=== PATIENT | female | born 1970 | race Asian ===

== ENCOUNTER 2019-02-08 16:26 | Emergency (ER) | payer BC ==
[~2019-02-08] VITALS: Ht 162.6 cm; Wt 81.8 kg
[2019-02-08 16:32] VITALS: Ht 162.6 cm; Wt 81.8 kg
--- NOTE | 2019-02-08 16:42 | ERD ---
ER Documentation Chief Complaint Chief Complaint red, watering eyes x1wk, denies pain HPI The patient is a 49-year-old female, presenting to the ER because of bilateral eye redness, pruritus, watery and yellowish discharge for 1 week, denies blurred vision/pain. She denies headache, neck pain, chest pain, dyspnea, abdominal pain, vomiting. Past medical history: Hypertension Past surgical history: None ROS All systems reviewed and are negative except as per history of present illness. Medications Home Meds Active Scripts Polymyxin B Sulfate-TMP* (Polymyxin B-TMP Eye Drops*) 10 Ml Drops, 1 DROP BOTH EYES QID for 7 Days, EA Prov:RAY ALICIA MD 02/08/19 Olopatadine* (Patanol* Ophth) 0.1% - 5 Ml Drops, 1 DROP BOTH EYES BID for 7 Days, #1 EA Prov:RAY ALICIA MD 02/08/19 Allergies Allergies: Coded Allergies: No Known Allergy (Unverified , 02/08/19) Physical Exam Vitals Vital Signs Date Temp Pulse Resp B/P (MAP) Pulse Ox O2 O2 Flow FiO2 Time Delivery Rate 02/08/19 97.3 96 18 163/87 97 16:32 (112) Physical Exam Const: No acute distress. Head: Atraumatic. Eyes: Bilateral erythematous conjunctivae with watery discharge, no eye entrapment ENT: Normal External Ears, Nose and Mouth. Neck: Full range of motion. No meningismus. Resp: Clear to auscultation bilaterally. Cardio: Regular rate and rhythm. Abd: Soft, non distended, normal bowel sounds, non tender. Skin: No petechiae or rashes. Back: No midline or flank tenderness. Ext: No cyanosis, or edema. Neur: Awake and alert. No focal deficit Psych: Normal Mood and Affect. Procedures/MDM MEDICAL MAKING DECISION: The patient is 49-year-old female, presenting with acute bilateral bacterial and allergic conjunctivitis, is stable for outpatient follow-up The differential diagnoses considered include but are not limited to foreign body, corneal abrasion Departure Diagnosis: Primary Impression: Acute bacterial conjunctivitis of both eyes Additional Impression: Allergic conjunctivitis of both eyes Condition: Good Comments She was discharged with Patanol and Polytrim eyedrop I discussed the findings with the patient. I advised the patient to follow-up with the primary physician in about 2-3 days, sooner if needed and return if any concern. Disclaimer: Inadvertent spelling and grammatical errors are likely due to EHR/dictation software use and do not reflect on the overall quality of patient care. Also, please note that the electronic time recorded on this note does not necessarily reflect the actual time of the patient encounter. RAY ALICIA MD February 08, 2019 16:42
[2019-02-08] MEDS ORDERED: POLY10DR19 BOTH EYES (16:49)
[2019-02-08] MEDS ORDERED: OLOP5DRO12 BOTH EYES (16:49)
[2019-02-08 17:00] VITALS: BP 139/90; PULSE 75; RESP 18
== END 2019-02-08 17:00 | disposition home or self-care (01) ==
LOC: E/R 16:26
DX: H10.023 Other mucopurulent conjunctivitis, bilateral (principal); I10 Essential (primary) hypertension; H10.13 Acute atopic conjunctivitis, bilateral
CPT/HCPCS: 99283

== ENCOUNTER → 2019-04-05 | Outpatient (CLI) | payer BC ==
[~2019-04-05] MED LIST: OLOP5DRO12 BOTH EYES; POLY10DR19 BOTH EYES
== END | disposition home or self-care (01) ==
LOC: LAB 17:05
PROVIDERS: ATTEND Obstetrics & Gynecology
DX: Z01.818 Encounter for other preprocedural examination (principal); D25.9 Leiomyoma of uterus, unspecified
CPT/HCPCS: 80053; 81001; 85025; 85610; 85730; 87086

== ENCOUNTER 2019-04-12 05:49 | Inpatient (IN) | payer BC ==
--- NOTE | 2019-04-10 20:22 | HP ---
Date/Time of Note Date/Time of Note DATE: 04/10/19 TIME: 20:15 Assessment/Plan VTE Prophylaxis SCD applied (from Nsg): Yes Pharmacological prophylaxis: NA/contraindicated Pharm contraindication: low risk/ambulating Lines/Catheters IV Catheter Type (from Nrsg): Peripheral IV Central line still needed: No Urinary Cath still in place: Yes (for 1st 24 hours.) Reason Cath still needed: other (indicate) (for 24 hours post-op) Assessment/Plan Assessment/Plan A: Large fibroid uterus. Menorrhagia. P: Total abdominal hysterectomy, possible uni- or bilateral salpingoophorectomy. HPI/ROS Admit Date/Time Admit Date/Time April 12, 2019 Hx of Present Illness Pt is a 49 y.o. A3 with a large growing fibroid uterus with heavy periods and is coming in for a hysterectomy. ROS Constitutional: no complaints Respiratory: no complaints Cardiovascular: no complaints Gastrointestinal: no complaints Genitourinary: no complaints Musculoskeletal: no complaints Neurologic: no complaints Psychological: no complaints, nl mood/affect PMH/Family/Social Past Medical History None except environmental allergies. Medical History: no pertinent history Coded Allergies: No Known Allergy (Unverified , 02/08/19) Past Surgical History D and C 2012 for menorrhagia. Family History Significant Family History: cancer (sister with breast CA), diabetes (both parents and maternal GM), hypertension (both parents.) Social History Alcohol Use: none Smoking Status: Former smoker Drug Use: none Exam/Review of Systems Vital Signs Vitals BP 136/80. Exam Constitutional: alert, oriented, well developed Psych: no complaints, nl mood/affect Neck: supple, non-tender Respiratory: clear to auscultation, normal air movement Cardiovascular: regular rate and rhythm, nl pulses Gastrointestinal: soft, nl liver, spleen, non-tender Genitourinary - Female: nl external genitalia, uterus (Large, palpable.) Neurological: ICE CREAM DIPPER II-XII intact, nl mental status, nl speech, nl strength CLINTON BENJAMIN MD Apr 10, 2019 20:22
[2019-04-12] VITALS (26 sets, daily range): BP systolic 117–146; BP diastolic 58–98; PULSE 75–100; RESP 15–24; Ht 162.6 cm; Wt 82.9 kg
[~2019-04-12] VITALS: Ht 162.6 cm; Wt 82.9 kg
[~2019-04-12 05:49] MED LIST changes: +CEFAZOLIN 2 GM/50 ML (PMX) 50 ML IVPB ONE; +FER325 PO; +HYDR-3601 PO; +IBUP800T48 PO; +LACTATED RINGER'S 1,000 ML IV SCH; +LORA-186 PO
--- NOTE | 2019-04-12 07:21 | PREAC ---
Date/Time of Note Date/Time of Note DATE: 04/12/19 TIME: 07:17 Anesthesia Eval and Record Evaluation Time Pre-Procedure Interview DATE: 04/12/19 TIME: 07:17 Age 49 Sex female NPO: 8 hrs Preoperative diagnosis uterine fibroid Planned procedure total abdominal hysterectomy Past Medical History Past Medical History: None GI: Obesity Surgery & Anesthesia Issues No known issue Meds Anticoagulation: No Beta [place] within 24 hr: No Reason Beta Parish not given: Pt. not on B-Parish Reported Medications Loratadine* (Claritin*) 10 Mg Tablet, 10 MG PO DAILY, TAB 04/12/19 Ferrous Sulfate* (Ferrous Sulfate*) 325 Mg Tabec, 325 MG PO DAILY, TAB 04/12/19 Discontinued Scripts Polymyxin B Sulfate-TMP* (Polymyxin B-TMP Eye Drops*) 10 Ml Drops, 1 DROP BOTH EYES QID for 7 Days, EA Prov:RAY ALICIA MD 02/08/19 Olopatadine* (Patanol* Ophth) 0.1% - 5 Ml Drops, 1 DROP BOTH EYES BID for 7 Days, #1 EA Prov:RAY ALICIA MD 02/08/19 Current Medications Lactated Ringer's 1,000 ml @ 125 mls/hr Q8H IV ; Start 04/10/19 at 20:08 Meds reviewed: Yes Allergies Coded Allergies: No Known Allergy (Unverified , 04/12/19) Allergies Reviewed: Yes Labs/Studies Labs Reviewed: Reviewed by anesthesiologist test: Negative Studies: ECG (n/a), CXR (n/a) Pre-procedure Exam Airway: Adequate mouth opening Mallampati: Mallampati I Teeth: Normal Lung: Normal Heart: Normal ASA Physical Status ASA physical status: 2 Emergency: None Planned Anesthetic General/MAC: ETT, LMA Neuraxial: Spinal Planned Pain Management Sub-arachniod narcotics, Parenteral pain med Pre-operative Attestations Prior to commencing anesthesia and surgery, the patient was re-evaluated, there was verification of: *The patient's identity *The results of appropriate recent lab work and preoperative vital signs *The above evaluation not changing prior to induction *Anesthetic plan, risk benefits, alternative and complications discussed with patient/family; questions answered; patient/family understands, accepts and wishes to proceed. KALPANA COOK MD Apr 12, 2019 07:21
[2019-04-12] MEDS ORDERED: EPHEDrine 25 MG/5 ML SYG ONE (07:24)
[2019-04-12] MEDS ORDERED: PROPOFOL 20 ML ONE (07:24)
[2019-04-12] MEDS ORDERED: DESFLURANE 15 MIN ONE (07:24)
[2019-04-12] MEDS ORDERED: ONDANSETRON 4 MG INJ ONE (07:25)
[2019-04-12] MEDS ORDERED: morphine SULFATE/PF (10 MG/10 ML) INJ ONE (07:25)
[2019-04-12] MEDS ORDERED: METOCLOPRAMIDE 10 MG INJ ONE (07:25)
[2019-04-12] MEDS ORDERED: CEFAZOLIN 1 GM INJ ONE (07:25)
[2019-04-12] MEDS ORDERED: FENTAnyl 50 MCG/ML VIAL ONE (07:25)
[2019-04-12] MEDS ORDERED: MIDAZOLAM 1 MG/ML 2 ML INJ ONE (07:25)
[2019-04-12] MEDS ORDERED: KETOROLAC 30 MG INJ ONE (07:25)
[2019-04-12] MEDS ORDERED: HYDROmorphONE 1 MG/5 ML IV SYRINGE IV PRN ×3 (07:30)
[2019-04-12] MEDS ORDERED: FENTAnyl 50 MCG/ML VIAL IV PRN ×3 (07:30)
[2019-04-12] MEDS ORDERED: MEPERIDINE 25 MG INJ IV PRN (07:30)
[2019-04-12] MEDS ORDERED: ONDANSETRON 4 MG INJ IV PRN ×2 (07:30→11:30)
[2019-04-12] MEDS ORDERED: KETOROLAC 30 MG INJ IV PRN (07:30)
[2019-04-12] MEDS ORDERED: DIPHENHYDRAMINE 50 MG INJ IV PRN (07:30)
--- NOTE | 2019-04-12 07:36 | HPN ---
Date/Time of Note Date/Time of Note DATE: 04/12/19 TIME: 07:36 Interval H&P Admission Note Pt. seen H&P reviewed: No system changes CLINTON BENJAMIN MD Apr 12, 2019 07:36
[2019-04-12] MEDS ORDERED: HYDROCODONE/APAP (5/325) TAB PO PRN (11:30)
[2019-04-12] MEDS ORDERED: IBUPROFEN 600 MG TAB PO PRN (11:30)
--- NOTE | 2019-04-12 11:33 | SIPON ---
Date/Time of Note Date/Time of Note DATE: 04/12/19 TIME: 11:31 Operative Report Preoperative Diagnosis Large fibroid uterus Postoperative Diagnosis Same Operation/Procedure Performed Total abdominal hysterectomy, bilateral salpingectomy. Surgeon see signature line perioperative assistant Nikole Bowens MD Anesthesia: general, spinal Estimated blood loss: 150 - 200 ml's Transfusion Required none Specimen Uterus and both tubes. Grafts/Implants none Complications none CLINTON BENJAMIN MD Apr 12, 2019 11:32
--- NOTE | 2019-04-12 11:34 | OPR ---
Date/Time of Note Date/Time of Note DATE: 04/12/19 TIME: 11:33 Operative Report Procedure Date: Apr 12, 2019 Preoperative Diagnosis Large fibroid uterus. Postoperative Diagnosis Same Operation/Procedure Performed Total abdominal hysterectomy with bilateral salpingectomy. Surgeon see signature line Operator And Truck Driver Nikole Bowens MD Anesthesia Type: general, spinal Anesthesiologist: KALPANA COOK MD Estimated Blood Loss: 150 - 200 ml's Transfusion none Specimen Uterus with both tubes. Grafts/Implants none Complications none Pt Condition Post Procedure: stable Disposition: PACU Procedure Description The patient was brought to the operating room and placed on the operating room table and was given a spinal block with Duramorph and then placed under general anesthesia. A vaginal prep was done. A Ring catheter was placed and then she was prepped and draped in the usual sterile fashion. A Pfannenstiel incision was made using a knife through the skin and subcutaneous tissue down to the level of fascia. Fascia was incised and extended bilaterally using Bovie cautery and scissors. The superior edge of the fascia was grasped with Josue clamps and the rectus muscles were from the overlying fascia using blunt dissection and Bovie cautery. The anterior peritoneum was bluntly entered using the surgeon's fingers and then stretched open with hands. The retractor was placed and packing with moist laps to keep the bowel out of the way. The uterus was large and bulky up to just below the umbilicus. The fundus was grasped with a double tooth tenaculum and elevated up through the incision with some difficulty. The uterus was broad and deep so despite the large incision there was minimal clearance at the sides. Placed 2 Pean clamps around the pedicles on each side of the uterus and used another Pean to grasp the round ligament. Cut the round ligament with cautery and suture ligated the stump on each side, developed the bladder flap and then pushed the bladder away using a sponge stick. A window was then made in the broad ligament on each side using the surgeon's fingers and then a Pean clamp was placed from the pedicles down to the opening and the tissue was then cut. This was proximal to the ovaries. The ovaries are being left in place. The pedicle on each side was then suture ligated and also a free tie was placed around the stump after each as well. Skeletonized the uterine vessels on each side, clamped the vessels with a straight Matthew clamp, then cut and suture ligated the uterine vessels. The ut erus was then cut off to get the bulky mass out of the way. The surgery proceeded with clamping, cutting and suture ligating the uterine vasculature on each side down to the level of the cervix and pushing the bladder away as needed, I was then able to enter the vagina anteriorly using a knife. The edges were grasped with a Josue clamp and then proceeded to cut out the cervix with Javan scissors. The cuff was closed with 0 chromic suture with excellent hemostasis noted with 2 stitches of 0 Vicryl. The tubes on each side were also removed, elevating the tubes with a Kellee clamp and placing a Pean clamp along the base cutting off the tube and suture ligating the stump on each side. The pelvis was then irrigated well. The cuff was dry. The broad ligament was dry. The ovaries both appeared very normal. Surgicel was placed at the cuff. The ovaries naturally stayed well out of the pelvis. Packing was then removed. The retractor was then removed. The count was performed and was correct for instruments and laps. The anterior peritoneum was then closed using 2-0 chromic in a running stitch. The rectus muscles were brought back together at midline with interrupted [id number] sutures of the same material. The underbelly of the fascia was examined and noted to be dry. The fascia was then closed using 0 Vicryl suture in a running stitch from each lateral edge to midline with overlap at the midline. Subcutaneous tissue was irrigated well, cautery applied where needed for hemostasis. The subcutaneous layer was closed using 2-0 chromic suture in a running stitch. The skin was then closed with 3-0 Monocryl in a subcuticular stitch with excellent tissue approximation and hemostasis. Mastisol and Steri-Strips were placed and a pressure dressing was applied ov blanquita. The patient tolerated the procedure very well and was brought to the recovery room in excellent condition. CLINTON BENJAMIN MD Apr 12, 2019 11:34
[2019-04-12] MEDS: LACTATED RINGER'S 1,000 ML IV SCH (17:13)
[2019-04-13] MEDS: LACTATED RINGER'S 1,000 ML IV SCH ×3 (00:21→08:31)
[2019-04-13 02:40] VITALS: BP 126/75; PULSE 72; RESP 17
[2019-04-13 07:30] VITALS: BP 121/68; PULSE 76; RESP 18
--- NOTE | 2019-04-13 07:59 | PAC ---
Date/Time of Note Date/Time of Note DATE: 04/13/19 TIME: 07:59 Post-Anesthesia Notes Post-Anesthesia Note Last documented vital signs Vital Signs Date Temp Pulse Resp B/P (MAP) Pulse Ox O2 O2 Flow FiO2 Time Delivery Rate 04/13/19 98.2 76 18 121/68 98 07:30 (85) 04/12/19 Nasal 2.0 20:15 Cannula Activity: WNL Respiratory function: WNL Cardiovascular function: WNL Mental status: Baseline Pain reasonably controlled: Yes Hydration appropriate: Yes Nausea/Vomiting absent: No KALPANA COOK MD Apr 13, 2019 07:59
--- NOTE | 2019-04-13 08:01 | OPPN ---
Date/Time of Note Date/Time of Note DATE: 04/13/19 TIME: 07:59 Anesthesia Follow up Anesthesia Follow up Last documented vital signs Vital Signs Date Temp Pulse Resp B/P (MAP) Pulse Ox O2 O2 Flow FiO2 Time Delivery Rate 04/13/19 98.2 76 18 121/68 98 07:30 (85) 04/12/19 Nasal 2.0 20:15 Cannula Respiratory function: WNL Cardiovascular function: WNL Comments A 49 year s/p GA, andspinal with duramorph for post op pain. POD #1 is doing fine. Pain is controlled,No itching, neural deficit, headache, N/V, SOB. KALPANA COOK MD Apr 13, 2019 08:01
[2019-04-13] MEDS: LORATADINE 10 MG TAB PO SCH (08:31)
[2019-04-13] MEDS: HYDROCODONE/APAP (5/325) TAB PO PRN ×3 (08:35→19:23)
[2019-04-13 13:25] VITALS: BP 124/62; PULSE 72; RESP 19
[2019-04-13] MEDS: IBUPROFEN 800 MG TAB PO SCH ×2 (15:37→23:20)
--- NOTE | 2019-04-13 16:58 | QN ---
Documentation Comment POD #1 Pt is in good spirits and ambulating with some difficulty getting up but after that it is fine. +flatus. No N/V. Pain medication is adequate but prefers non- narcotic. T=97.2 BP 124/62 Dressing is clean, dry and intact. Has a binder on. Ext NT, no edema. WBC 14.2 Hgb 13.2 plts 215K P: Continue care. Will change the Motrin 800 to q 8 hours around the clock. Expect possible d/c tomorrow. CLINTON BENJAMIN MD Apr 13, 2019 16:58
[2019-04-13 19:44] VITALS: BP 131/71; PULSE 82; RESP 18
[2019-04-14 02:27] VITALS: BP 142/7; PULSE 83; RESP 18
[2019-04-14] MEDS: IBUPROFEN 800 MG TAB PO SCH ×2 (06:27→16:20)
[2019-04-14 07:25] VITALS: BP 150/85; PULSE 77; RESP 16
[2019-04-14] MEDS: LORATADINE 10 MG TAB PO SCH (08:57)
[2019-04-14 10:11] VITALS: BP 131/79; PULSE 71
[2019-04-14] MEDS: HYDROCODONE/APAP (5/325) TAB PO PRN ×2 (12:54→19:42)
[2019-04-14 15:09] VITALS: BP 142/81; PULSE 79; RESP 15
--- NOTE | 2019-04-14 16:36 | PD.PPDC ---
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 Condition [id number] Patient Condition: [id number] Good Diet [id number] Diet: Osawm6m Resume Regular Diet Activity/Restrictions [id number] Activity: Ddumw0t Bedrest May be up to bathroom May be up for meals May Shower [id number] Restrictions: [id number] No Exercising No Lifting No Driving Minimize Walking Minimize Stair-climbing No Sexual Activity Nothing in the Vagina No [place] No Tampons, douche Wound/Drain Care Instructions [id number] Wound/Drain Care Nwkuc6m Remove Steri Strips in 2 Instructions: weeks Keep clean and dry Follow-up Follow-up with Physician: 2, Week/Weeks Return to clinic for [id number] 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
--- NOTE | 2019-04-14 16:40 | DS ---
Date/Time of Note Date/Time of Note DATE: 04/14/19 TIME: 16:38 Discharge Summary Admission/Discharge Info Admit Date/Time Apr 12, 2019 at 05:49 Discharge Date/Time April 14, 2019 Discharge Diagnosis Uterine fibroids, menorrhagia. Patient Condition: Good Procedures Total abdominal hysterectomy, bilateral salpingectomy. Hx of Present Illness Pt is a 49 y.o. A3 with a large growing fibroid uterus with heavy periods and is coming in for a hysterectomy. Hospital Course Pt did very well postoperatively and ambulated the 1st day relatively easily and advancing her diet w/o a problem. Her pain control was not optimal yesterday but is much improved today. Home Meds Reported Medications Loratadine* (Claritin*) 10 Mg Tablet, 10 MG PO DAILY, TAB 04/12/19 Ferrous Sulfate* (Ferrous Sulfate*) 325 Mg Tabec, 325 MG PO DAILY, TAB 04/12/19 Discontinued Scripts Polymyxin B Sulfate-TMP* (Polymyxin B-TMP Eye Drops*) 10 Ml Drops, 1 DROP BOTH EYES QID for 7 Days, EA Prov:RAY ALICIA MD 02/08/19 Olopatadine* (Patanol* Ophth) 0.1% - 5 Ml Drops, 1 DROP BOTH EYES BID for 7 Days, #1 EA Prov:RAY ALICIA MD 02/08/19 Follow-up Plan Follow-up appt in 2 weeks. Primary Care Provider Not On Staff Doctor Time spent on discharge: < 30 minutes CLINTON BENJAMIN MD Apr 14, 2019 16:40
[2019-04-14 19:30] VITALS: BP 150/88; PULSE 77; RESP 18
== END 2019-04-14 20:50 | disposition home or self-care (01) | DRG 743 ==
LOC: EEVIPCON 05:49 → REC 05:49 → EEVIPCON 07:30 → MS1 12:20
PROVIDERS: ADMIT Obstetrics & Gynecology; ATTEND Obstetrics & Gynecology
PROC: 0UT70ZZ Resection of Bilateral Fallopian Tubes, Open Approach (ICD-10-PCS; 2019-04-12)
PROC: 0UT90ZZ Resection of Uterus, Open Approach (ICD-10-PCS; principal; 2019-04-12 07:30)
DX: N92.0 Excessive and frequent menstruation with regular cycle (principal); D25.1 Intramural leiomyoma of uterus
CPT/HCPCS: 85025; 86850; 86900; 86901; 88305; J0690; J1170; J1885; J2175; J2250; J2274; J2405; J2765; J3010; J7120